=== PATIENT | female | born 1975 | race Two or more races ===

== ENCOUNTER 2019-06-15 07:38 | Day surgery (SDC) | payer OTHER ==
[2019-06-09 14:02] VITALS: BMI 21.4
--- NOTE | 2019-06-10 11:35 | HP ---
Admitting History and Physical - Primary Care Physician PCP: Krysten Xie - Admission Chief Complaint: right LCIS and left fibroadenomas History of Present Illness: Patient is a 44 yo female who was noted to have bilateral solid nodules on baseline US 02/2019 for which US core biopsies was recommended. The bxs were c/ w left fibroadenomas at the 12 and 1 oclock position (both 4 cm FN) and the right were c/w right 9 o'clock (3 cm FN) fibroadenoma with LCIS as well as a right 10:00 (1 cm FN) firbroadenoma with LCIS. The patient is now presenting for WE of bilateral lesions with NL x 4. History Source: Patient Limitations to Obtaining History: No Limitations - Past Medical History ...LMP: 05/12/19 ...: No - Smoking History Smoking history: Current every day smoker Have you smoked in the past 12 months: No - Alcohol/Substance Use Hx Alcohol Use: Yes (SOCIALLY) Home Medications - Allergies Allergies/Adverse Reactions: Allergies Allergy/AdvReac Type Severity Reaction Status Date / Time No Known Drug Allergies Allergy Verified 06/09/19 13:50 - Home Medications Home Medications: Ambulatory Orders NK [No Known Home Medication] 06/09/19 Family Disease History - Family Disease History Family History: Denies Review of Systems - Review of Systems Constitutional: reports: No Symptoms Cardiovascular: reports: No Symptoms Respiratory: reports: No Symptoms Physical Examination Constitutional: Yes: Well Nourished, Calm Breast(s): Yes: Other (Diffusely nodular and dense bilaterally. No suspicious masses or adenopathy noted bilaterally.) Problem List - Problems (1) Lobular carcinoma in situ (LCIS) of right breast Code(s): D05.01 - LOBULAR CARCINOMA IN SITU OF RIGHT BREAST (2) Masses of both breasts Code(s): N63.10 - UNSPECIFIED LUMP IN THE RIGHT BREAST, UNSPECIFIED QUADRANT; N63.20 - UNSPECIFIED LUMP IN THE LEFT BREAST, UNSPECIFIED QUADRANT Assessment/Plan Plan: Bilateral WE with NL x 4
[2019-06-15] MEDS ORDERED: MIDAZOLAM HCL 2 MG/2 ML SINGLE DOSE VIAL ONE (12:58)
[2019-06-15] MEDS ORDERED: BUPIVACAINE HCL/PF 2.5 MG/ML - 30 ML VIAL IJ ONE (13:48)
[2019-06-15] MEDS ORDERED: GUM MASTIC/STORAX/MSAL/ALCOHOL 1 DRP DROPSBTL MC ONE (14:28)
[2019-06-15] MEDS ORDERED: BUPIVACAINE HCL/PF 0.25% (2.5MG/ML) 10 ML VIAL IJ ONE (14:42)
[2019-06-15] MEDS ORDERED: KETOROLAC TROMETHAMINE 30 MG/1 ML VIAL IVPUSH PRN (15:02)
[2019-06-15] MEDS ORDERED: ONDANSETRON 4 MG/2 ML VIAL IVPUSH PRN ×2 (15:02→15:05)
[2019-06-15] MEDS ORDERED: oxyCODONE HCL 5 MG TABLET PO PRN (15:05)
[2019-06-15] MEDS ORDERED: DEXTROSE 5%-0.45% SALINE 1,000 ML IV SCH (15:15)
[2019-06-15] MEDS ORDERED: LACTATED RINGERS SOLUTION 1,000 ML IV SCH (15:15)
[2019-06-15 16:27] VITALS: TEMP 97.6
[2019-06-15] MEDS ORDERED: oxyCODONE HCL 5 MG TABLET ONE (16:33)
[2019-06-15 17:07] VITALS: BP 124/82; PULSE 68
--- NOTE | 2019-06-16 12:36 | OP ---
DATE OF OPERATION: 06/15/2019 PREOPERATIVE DIAGNOSIS: Left breast fibroadenomas and right breast fibroadenomas with lobular carcinoma in situ. POSTOPERATIVE DIAGNOSIS: Left breast fibroadenomas and right breast fibroadenomas with lobular carcinoma in situ. PROCEDURE: Right mammographically localized wide excision and left ultrasound localized wide excision. ANESTHESIA: General intubated. ATTENDING SURGEON: Jayson Xie MD DIRECTOR OF PROMOTIONS: MODE Alvarado ESTIMATED BLOOD LOSS: Minimal. OPERATIVE REPORT: Patient was made aware of the risks and benefits of the procedure and consented. Preoperatively she went to Radiology where 2 needles were placed on the right and 1 on the left to indicate where the index lesions were. She was then placed in the supine position on the operating room table and after general anesthesia was induced the patient was intubated. The operative site was prepped and draped in the usual sterile fashion. The right side was approached first. A radial incision was made in the upper outer quadrant using electrocautery. Thick skin flaps were made. The needles were withdrawn from the puncture sites and the wires through the wound. Tissues around the wire were then sharply excised and submitted with a short suture superior, long suture lateral. Specimen radiograph confirmed the presence of the index lesions. The specimen was then submitted to Pathology. The wound was copiously irrigated with normal saline. Hemostasis maintained with electrocautery. The wound was then closed with deep 3-0 Vicryl followed by a running subcuticular 4-0 Monocryl. The left side was then approached. Again a radial incision was made using electrocautery. Thick skin flaps were made. The needle was withdrawn from the puncture site and the wire through the wound. Tissues around the wire were then sharply excised and submitted with a short suture superior, long suture lateral. Specimen radiograph confirmed the presence of the index lesion. The specimen was then submitted to Pathology. The wound was then closed with deep 3-0 Vicryl followed by a running subcuticular 4-0 Monocryl. Steri-Strips, sterile dressing and a compression bra were then applied and the patient having tolerated the procedure well was transferred to the recovery room in excellent condition. JAYSON XIE M.D. [id number]
--- NOTE | 2019-06-21 16:38 | PATH ---
Surgical Pathology Report Patient Name: CODY ADAN [facility]. Rec. #: [id number] /Age/Gender: 1975 (Age: 44) / F Account: [id number] Location: [facility] Taken: 06/15/2019 Received: 06/15/2019 Reported: 06/21/2019 Physicians: Krysten Xie M.D. Specimen(s) Received A: RIGHT BREAST WIDE EXCISION B: LEFT BREAST WIDE EXCISION Clinical History R:FA with LCIS L: FA Final Diagnosis A. BREAST, RIGHT, WIDE EXCISION: FIBROADENOMA, FOCAL ATYPICAL LOBULAR HYPERPLASIA (ALH), SCLEROSING ADENOSIS, COLUMNAR CELL CHANGE, CYSTIC APOCRINE METAPLASIA AND ASSOCIATED CALCIFICATIONS. PRIOR BIOPSY SITE CHANGES ARE PRESENT. B. BREAST, LEFT, WIDE EXCISION: FIBROADENOMA, SCLEROSING ADENOSIS, COLUMNAR CELL CHANGE AND STROMAL FIBROSIS. PRIOR BIOPSY SITE CHANGES ARE PRESENT. Electronically Signed Shahrzad Cedeño M.D. Gross Description A. Received in formalin, labeled "right breast wide excision" is a 3.8 x 3 x 2 cm portion of fibrofatty tissue with a long suture designating the lateral margin and a short suture indicating the superior margin, per the surgeon. The specimen is inked as follows: superior blue, inferior green, anterior black, medial yellow, posterior and lateral red. Sectioning reveals dense fibrous to firm tissue with a central hemorrhagic focus, consistent with prior biopsy site. The specimen is entirely submitted in thirteen cassettes as follows: 1-0-cfydnaeq sectioned central tissue with superior, inferior and deep margins; 9-medial margin; 10, 11-lateral margin; 12, 13-anterior margin. B. Received in formalin, labeled "left breast wide excision" is a 4 x 2.5 x 2 cm portion of fibrofatty tissue with localizing needle in place. A long suture designates the lateral margin and a short suture indicates the superior margin, per the surgeon. The specimen is inked as follows: superior blue, inferior green, medial yellow, deep black, lateral and anterior red. Sectioning reveals a 2.2 x 2.0 x 1.3 cm circumscribed henao rubbery mass abutting the superior, inferior and deep margins. Entirely submitted in eleven cassettes as follows: 1-8-mass with superior, inferior, medial and lateral margins; 9-anterior margin; 10, 11-deep margin. Time to formalin fixation: 3 minutes Total formalin fixation time: Approximately 28 hours [facility]/06/16/2019
== END 2019-06-15 17:08 | disposition home or self-care (01) ==
LOC: FASU 07:38
PROVIDERS: ATTEND Surgery Surgical Oncology
PROC: 0HBV0ZZ Excision of Bilateral Breast, Open Approach (ICD-10-PCS; principal; 2019-06-15 13:47)
DX: D05.01 Lobular carcinoma in situ of right breast (principal); D24.1 Benign neoplasm of right breast; D24.2 Benign neoplasm of left breast; N60.89 Other benign mammary dysplasias of unspecified breast; N60.21 Fibroadenosis of right breast; N60.22 Fibroadenosis of left breast; N60.11 Diffuse cystic mastopathy of right breast; N60.32 Fibrosclerosis of left breast; N64.89 Other specified disorders of breast; F17.210 Nicotine dependence, cigarettes, uncomplicated
CPT/HCPCS: 19281; 19282; 84703; 88307-TC; 94760